=== PATIENT | male | born 1980 | race Caucasian/White ===

== ENCOUNTER 2018-06-29 11:00 | Day surgery (SDC) | payer BC ==
[2018-06-27 09:49] VITALS: BMI 36.7
[~2018-06-29 11:00] MED LIST: DEXAMETHASONE SOD PHOSPHATE 10 MG/ML 1 ML VIAL IV ONE; LACTATED RINGERS 1,000 ML IV SCH; MIDAZOLAM 2 MG/2 ML VIAL IV PRN; SCOPOLAMINE 1.5MG/72HR PATCH TRANSDERM ONE; SODIUM CHLORIDE 0.9% IRRIGATIO 1,000 ML IRRIGATION ONE; ceFAZolin 3 GM in SODIUM CHLORIDE 0.9% 100 ML IVPB ONE; fentaNYL (PF) 50 MCG/ML 2 ML AMP IVP PRN
[2018-06-29] MEDS ORDERED: LIDOCAINE 1% 20 ML VIAL (10MG/ML) FOR IV START INTRADERMA ONE (11:32)
[2018-06-29] MEDS: ONDANSETRON 4 MG/2 ML VIAL IVP ONE ×2 (11:40→14:48)
[2018-06-29] MEDS ORDERED: SUCCINYLCHOLINE CHLORIDE VIAL 200 MG/10 ML VIAL IV ONE (12:47)
[2018-06-29] MEDS ORDERED: NEOSTIGMINE 1 MG/ML 10 ML VIAL ONE (12:47)
[2018-06-29] MEDS ORDERED: fentaNYL (PF) 50 MCG/ML 2 ML AMP ONE (12:47)
[2018-06-29] MEDS ORDERED: ROCURONIUM BROMIDE 10 MG/ML 10 ML VIAL IV ONE (12:47)
[2018-06-29] MEDS ORDERED: MIDAZOLAM 2 MG/2 ML VIAL ONE (12:47)
[2018-06-29] MEDS ORDERED: PHENYLEPHRINE-0.9% NACL SYG 1 MG/10 ML SYRINGE ONE (12:47)
[2018-06-29] MEDS ORDERED: GLYCOPYRROLATE 0.2 MG/ML 2 ML VIAL ONE (12:47)
[2018-06-29] MEDS ORDERED: PROPOFOL 10 MG/ML 20 ML VIAL IV ONE (12:47)
[2018-06-29] MEDS ORDERED: LIDOCAINE 1% INJ 10MG/ML (20 ML MDV) ONE (12:47)
[2018-06-29] MEDS ORDERED: methylPREDNISolone ACETATE 80 MG/ML 1 ML VIAL IM ONE ×3 (12:48→14:03)
[2018-06-29] MEDS ORDERED: GELATIN SPONGE,ABSORB (LARGE) 1 EACH SPONGE TOPICAL ONE ×2 (12:48→13:27)
[2018-06-29] MEDS ORDERED: LIDOCAINE 0.5%-EPI 1:200,000 50 ML VIAL SQ ONE ×2 (12:48→13:27)
[2018-06-29] MEDS ORDERED: THROMBIN (BOVINE) 5,000 UNIT VIAL TOPICAL ONE ×2 (12:49→13:27)
[2018-06-29] MEDS ORDERED: LACTATED RINGERS 1,000 ML IV ONE (13:32)
[2018-06-29] MEDS ORDERED: HYDROcodone/APAP 5-325MG 1 EACH TAB PO PRN ×2 (14:25)
[2018-06-29] MEDS ORDERED: IBUPROFEN 600 MG TAB PO PRN (14:25)
[2018-06-29] MEDS ORDERED: HYDROmorphone 1 MG/ML 1 ML SYRINGE IVP PRN (14:25)
[2018-06-29] MEDS ORDERED: HYDROmorphone 0.5 MG/0.5 ML SYRINGE IVP PRN (14:25)
[2018-06-29] MEDS ORDERED: BENZOCAINE/MENTHOL LOZENG 1 EACH LOZENGE MUCOUS MEM PRN (14:25)
[2018-06-29] MEDS ORDERED: MAGNESIUM HYDROXIDE 2,400 MG/10 ML CUP PO PRN (14:25)
[2018-06-29] MEDS ORDERED: ONDANSETRON 4 MG/2 ML VIAL IVP PRN (14:25)
[2018-06-29] MEDS ORDERED: ACETAMINOPHEN TAB 325 MG TAB PO PRN (14:27)
--- NOTE | 2018-06-29 14:27 | FL ---
EXAMINATION TYPE: FL guidance operating room DATE OF EXAM: 06/29/2018 HISTORY: Flouroscopy time 4 seconds of fluoroscopy provided. IMPRESSION: 1. Fluoroscopy time.
[2018-06-29] MEDS ORDERED: SODIUM CHLORIDE 0.9% 1,000 ML IV SCH (14:30)
--- NOTE | 2018-06-29 14:32 | P.OP ---
Date of Procedure: 06/29/18 Preoperative Diagnosis: Large herniated disc L45 with extruded fragment, left lower extremity radiculopathy, left lower shoulder weakness, degenerative disc disease, low back pain Postoperative Diagnosis: Same Anesthesia: GETA Pathology: none sent Condition: stable Disposition: PACU Description of Procedure: BRIEF OPERATIVE NOTE Preoperative Diagnosis:Large herniated disc L45 with extruded fragment, left lower extremity radiculopathy, left lower shoulder weakness, degenerative disc disease, low back pain Postoperative Diagnosis:Large herniated disc L45 with extruded fragment, left lower extremity radiculopathy, left lower shoulder weakness, degenerative disc disease, low back pain, plus obesity Procedure: Laminectomy and decompression L4 5 Discectomy for decompression L4 5 Some increased difficulty due to patient's body habitus Surgeon: Dr. Todd Front End Application Developer: Rodney Arita is present throughout the entire the case persistence during positioning, dissection, exposure, visualization, and all crucial elements of the case as well as closure. Anesthesia: General anesthesia per Dr. Ley Estimated blood loss: Approximately 50 mL Complications: None apparent Components implanted: None Disposition: To recovery room in good stable condition. OPERATIVE INDICATIONS The patient has been having issues in their lower back and lower extremities over the past several years but has had worsening over the past couple of months. He is having significant pain in his back with left lower extremity radiculopathy over an L5 distribution. Patient had imaging which showed a massive disc herniation L4 5 on the left side with extruded fragment and degenerative disc disease adequately well with his low back and lower extremity radicular symptoms. The patient has been through conservative treatment. He is not having any prolonged benefit despite aggressive conservative treatment We discussed various treatment options including surgery, and the patient wishes to proceed with surgery We discussed the risk, patient's alternatives and benefits of surgery including but not limited to, risk of bleeding risk of infection, risk of need for further surgery, risk of decreased, loss of motion, loss of function, nerve damage, paralysis, heart attack, blindness and . OPERATIVE SUMMARY After discussing all the risks, patient alternatives and benefits at length, the patient elected to proceed with surgical intervention, signed informed consent, and presented for their procedure. The patient was seen and examined in the preoperative holding area and the surgical site was marked. The patient was given antibiotics and brought to the operating room. The patient was sedated and intubated by anesthesia in standard fashion. The patient was positioned on to the operating room table in a prone position on the appropriate frame which was well-padded and well molded. We were careful to pad any bony prominences and pressure points. We were careful to maintain the patient's cervical spine and good neutral alignment and position throughout. The patient was prepped and draped in a normal standard fashion. An appropriate timeout and keystone protocol performed. We were able to proceed with the surgery. Fluoroscopy was utilized to establish the appropriate level. The local wound area was infiltrated with local anesthetic. An incision was made at the midline longitudinally over the appropriate levels L4 5. Dissection was taken down subcutaneously to the level of the fascia which was split midline. The patient has significantly large body habitus and is morbidly obese and there was some increased time with dissection and decompression and discectomy throughout the case. Dissection was taken over the lamina. Intraoperative fluoroscopy was taken which showed a marker at the appropriate level. With the appropriate level positively confirmed, at L4 5 we were able to proceed with laminectomy. The wound was copiously irrigated and suctioned dry as had been done periodically throughout the case. I performed a laminectomy with a combination of curettes and a high-speed bur and Kerrison r ongeurs. A small medial facetectomy was performed again further access. A partial foraminotomy was also performed. Portions of the ligamentum flavum were taken down to expose the dura and traversing nerve root. There is significant scar tissue formation around the traversing nerve root and at the extruded disc fragment. It took extra care to mobilize the dressing nerve root and the disc itself. I was able to mobilize the traversing nerve root and gain access to the disc space. Note was made of obvious compression from the disc. Protecting the soft tissue structures, a small annulotomy was established. I was able to perform discectomy and remove any extruded disc fragments and any loose fragments from within the disc itself. There is some disc desiccation noted. I tried to preserve the disc annulus that appeared stable. There was significant disc loss at the intervertebral space. There were no further extruded fragments noted. There is no evidence of dural tear or leak. Good hemostasis maintained. The wound was copiously irrigated and suctioned dry. Good decompression and discectomy was noted. We were able to proceed with closure. The fascia was closed for a watertight closure. The subcuticular tissue was closed with absorbable suture. The wound was cleaned and dried and dressed with the appropriate dressing. The drapes were broken down. The patient was gently rolled back onto their hospital bed being careful to maintain their cervical spine and good neutral alignment and position. They were woken up by anesthesia, extubated, and brought to the recovery room in good stable condition. The patient will be admitted to the hospital for observation and for appropriate postoperative care, medical management and monitoring. We will continue to follow them closely about the postoperative course.
[2018-06-29 14:47] VITALS: TEMP 96.8
[2018-06-29] MEDS: HYDROmorphone 0.5 MG/0.5 ML SYRINGE IVP PRN ×2 (15:08→15:16)
[2018-06-29] MEDS: fentaNYL (PF) 50 MCG/ML 2 ML AMP IVP ONE ×2 (15:24→15:34)
[2018-06-29] MEDS ORDERED: SODIUM CHLORIDE 0.9% 1,000 ML IV ONE (15:40)
[2018-06-29] MEDS ORDERED: ceFAZolin 3 GM in SODIUM CHLORIDE 0.9% 100 ML IVPB SCH (16:00)
[2018-06-29 16:09] LABS: Glucose,Whole Blood 101 mg/dL (75-99)
[2018-06-29] MEDS ORDERED: HYDROcodone/APAP 5-325MG 1 EACH TAB PO ONE (16:13)
[2018-06-29 16:54] VITALS: RESP 20
[2018-06-29 18:11] VITALS: BP 148/84; PULSE 66
[2018-06-29] MEDS ORDERED: IBUPROFEN 800 MG TAB PO SCH (21:00)
[2018-06-30] MEDS ORDERED: SENNOSIDES-DOCUSATE SODIUM 1 EACH TAB PO SCH (09:00)
== END 2018-06-29 17:23 | disposition home or self-care (01) ==
LOC: OR 11:00
PROVIDERS: ATTEND Orthopaedic Surgery Orthopaedic Surgery of the Spine
DX: M51.26 Other intervertebral disc displacement, lumbar region (principal); M48.062 Spinal stenosis, lumbar region with neurogenic claudication; M51.16 Intervertebral disc disorders with radiculopathy, lumbar region; E78.2 Mixed hyperlipidemia; R53.1 Weakness; Z68.36 Body mass index [BMI] 36.0-36.9, adult; F17.210 Nicotine dependence, cigarettes, uncomplicated; E66.01 Morbid (severe) obesity due to excess calories; I45.10 Unspecified right bundle-branch block; R03.0 Elevated blood-pressure reading, without diagnosis of hypertension; Z79.1 Long term (current) use of non-steroidal anti-inflammatories (NSAID); Z79.52 Long term (current) use of systemic steroids; Z79.899 Other long term (current) drug therapy
CPT/HCPCS: 63030; J2250; J0330; J1040; J2710; J0690; J2405; J2001; J3010; J2370; J2704; J1170

== ENCOUNTER → 2018-12-09 | Outpatient (CLI) | payer BC ==
[2018-12-09 11:34] LABS: Basophils # (A) 0.2 k/uL (0-0.2); Basophils % (A) 2 %; Eosinophils # (A) 0.3 k/uL (0-0.7); Eosinophils % (A) 4 %; HCT 55.4 % (39.0-53.0); HGB 18.6 gm/dL (13.0-17.5); Lymphocytes # (A) 2.6 k/uL (1.0-4.8); Lymphocytes % (A) 30 %; MCH 30.9 pg (25.0-35.0); MCHC 33.6 g/dL (31.0-37.0); Mean Platelet Volume 6.7; Monocytes # (A) 0.5 k/uL (0-1.0); Monocytes % (A) 5 %; Neutrophils % (A) 58 %; Platelet Count 361 k/uL (150-450); RBC 6.02 m/uL (4.30-5.90); RDW 12.9 % (11.5-15.5); WBC 8.7 k/uL (3.8-10.6)
[2018-12-09 11:49] LABS: INR 0.9 (<1.2); Partial Thromboplastin Time 25.3 sec (22.0-30.0); Prothrombin Time 9.9 sec (9.0-12.0)
[2018-12-09 11:52] LABS: Appearance,Urine Clear (Clear); Bilirubin,Urine Negative (Negative); Blood,Urine Negative (Negative); Color,Urine Yellow; Glucose,Urine (UA) Negative (Negative); Ketones,Urine Negative (Negative); Leukocyte Esterase,Urine Negative (Negative); Nitrite,Urine Negative (Negative); Protein,Urine Negative (Negative); Specific Gravity,Urine 1.015 (1.001-1.035); Urobilinogen,Urine <2.0 mg/dL (<2.0)
[2018-12-09 11:54] LABS: African American GFR (CKD) >90 (>60 ml/min/1.73 sqM); Anion Gap 10 mmol/L; Blood Urea Nitrogen 8 mg/dL (9-20); Calcium 9.4 mg/dL (8.4-10.2); Carbon Dioxide 26 mmol/L (22-30); Chloride 105 mmol/L (98-107); Glucose 123 mg/dL (74-99); Potassium 4.9 mmol/L (3.5-5.1); Sodium 141 mmol/L (137-145)
--- NOTE | 2018-12-09 12:49 | XR ---
EXAMINATION TYPE: XR chest 2V DATE OF EXAM: 12/09/2018 COMPARISON: NONE HISTORY: Preop lumbar fusion TECHNIQUE: Frontal and lateral views of the chest are obtained. FINDINGS: There is no focal air space opacity, pleural effusion, or pneumothorax seen. The cardiac silhouette size is within normal limits. The osseous structures are intact. IMPRESSION: No acute cardiopulmonary process.
== END | disposition home or self-care (01) ==
LOC: LABPAT 10:28
PROVIDERS: ATTEND Orthopaedic Surgery Orthopaedic Surgery of the Spine
DX: Z01.818 Encounter for other preprocedural examination (principal); Z01.810 Encounter for preprocedural cardiovascular examination; Z01.812 Encounter for preprocedural laboratory examination; M51.9 Unspecified thoracic, thoracolumbar and lumbosacral intervertebral disc disorder
CPT/HCPCS: 36415; 71046; 80048; 81003; 85025; 85610; 85730; 87070; 93005

== ENCOUNTER 2018-12-14 12:47 | Day surgery (SDC) | payer BC ==
[~2018-12-14 12:47] MED LIST changes: +BACITRACIN 50,000 UNIT, POLYMYXIN B 500,000 UNIT in SODIUM CHLORIDE 0.9% IRRIGATIO 1,00... IRRIGATION ONE; -DEXAMETHASONE SOD PHOSPHATE 10 MG/ML 1 ML VIAL IV ONE; -LACTATED RINGERS 1,000 ML IV SCH; -MIDAZOLAM 2 MG/2 ML VIAL IV PRN; -SCOPOLAMINE 1.5MG/72HR PATCH TRANSDERM ONE; -SODIUM CHLORIDE 0.9% IRRIGATIO 1,000 ML IRRIGATION ONE; -fentaNYL (PF) 50 MCG/ML 2 ML AMP IVP PRN
[2018-12-14] MEDS ORDERED: LACTATED RINGERS 1,000 ML IV ONE ×3 (13:04→17:46)
[2018-12-14] MEDS ORDERED: LIDOCAINE 1% 20 ML VIAL (10MG/ML) FOR IV START INTRADERMA ONE (13:04)
[2018-12-14] MEDS ORDERED: HYDROmorphone (PF) 1 MG/ML ONE (15:19)
[2018-12-14] MEDS ORDERED: PROPOFOL 10 MG/ML 20 ML VIAL IV ONE (15:19)
[2018-12-14] MEDS ORDERED: PHENYLEPHRINE-0.9% NACL SYG 1 MG/10 ML SYRINGE ONE (15:19)
[2018-12-14] MEDS ORDERED: SUCCINYLCHOLINE CHLORIDE VIAL 200 MG/10 ML VIAL IV ONE (15:19)
[2018-12-14] MEDS ORDERED: LIDOCAINE 1% INJ 10MG/ML (20 ML MDV) ONE (15:19)
[2018-12-14] MEDS ORDERED: KETAMINE 10 MG/ML 20 ML VIAL ONE (15:19)
[2018-12-14] MEDS ORDERED: fentaNYL (PF) 50 MCG/ML 2 ML AMP ONE (15:19)
[2018-12-14] MEDS ORDERED: MIDAZOLAM 2 MG/2 ML VIAL ONE (15:19)
[2018-12-14] MEDS ORDERED: GELATIN SPONGE,ABSORB (LARGE) 1 EACH SPONGE TOPICAL ONE (16:41)
[2018-12-14] MEDS ORDERED: THROMBIN (BOVINE) 5,000 UNIT VIAL TOPICAL ONE (16:41)
[2018-12-14] MEDS ORDERED: LIDOCAINE 0.5%-EPI 1:200,000 50 ML VIAL SQ ONE (16:42)
[2018-12-14] MEDS ORDERED: HYDROmorphone 0.5 MG/0.5 ML SYRINGE IVP PRN ×2 (17:48→19:22)
[2018-12-14] MEDS ORDERED: BENZOCAINE/MENTHOL LOZENG 1 EACH LOZENGE MUCOUS MEM PRN (17:48)
[2018-12-14] MEDS ORDERED: MAGNESIUM HYDROXIDE 2,400 MG/10 ML CUP PO PRN (17:48)
[2018-12-14] MEDS ORDERED: ONDANSETRON 4 MG/2 ML VIAL IVP PRN (17:50)
[2018-12-14] MEDS ORDERED: HYDROcodone/APAP 5-325MG 1 EACH TAB PO PRN (17:50)
--- NOTE | 2018-12-14 17:59 | P.OP ---
Date of Procedure: 12/14/18 Preoperative Diagnosis: Recurrent disc herniation L4 5, recurrent stenosis L4 5, progressive degeneration L4 5, degenerative disc disease L4 5 low back pain with lower extremity radiculopathy Postoperative Diagnosis: Same Anesthesia: GETA Pathology: none sent Condition: stable Disposition: PACU Description of Procedure: DESCRIPTION OF PROCEDURE(S): BRIEF OPERATIVE NOTE Preoperative Diagnosis: Recurrent disc herniation L4 5, recurrent stenosis L4 5, progressive degeneration L4 5, degenerative disc disease L4 5 low back pain with lower extremity radiculopathy Postoperative Diagnosis:Recurrent disc herniation L4 5, recurrent stenosis L4 5, progressive degeneration L4 5, degenerative disc disease L4 5 low back pain with lower extremity radiculopathy Procedure: Revision Laminectomy and decompression L4 5 Minimally invasive Posterior lateral decompression and L4 5 facet fusion Minimally invasive Transforaminal lumbar interbody fusion for a 360 fusion L4 5 Discectomy for decompression L4 5 Placement of interbody graft L4 5 Local autogenous bone grafting Harvesting of bone marrow aspirate in the pedicle of L4 on the right Use of Cell Saver Use of bone graft extenders Surgeon: Dr. Todd Nurses Aide: Rodney GREGORY who is present throughout the entire the case persistence during positioning, dissection, exposure, visualization, and all crucial elements of the case as well as closure. Anesthesia: General anesthesia Estimated blood loss: Approximately 200 mL Complications: None apparent Components implanted: K2M minimally invasive [place] pedicle screw system with 6.5 x 50 mm screws 2 rods measuring 40 mm and [place] interbody 7 mm cage and and 10 mL of bio4 allograft bone graft and 30 mL of DBX bone fiber matrix to supplement the local autogenous bone graft and bone marrow aspirate Disposition: To recovery room in good stable condition. OPERATIVE INDICATIONS The patient has had significant issues in their lower back and lower extremities. the patient had a disc herniation earlier this year had severe left lower extremity radicular symptoms. Patient underwent laminectomy decompression with discectomy back in May of this year and did very well with his surgery. He had very good resolution of his lower extremity radiculopathy and symptoms and was making excellent progress until the past several months respiratory having increasing back pain and recurrent left leg symptoms. The patient is having worsening symptoms was found to have progressive degeneration and disc height loss at L4 5 as well as evidence of recurrence of some of the disc herniation and foraminal stenosis which really well with his low back and lower extremity symptoms. It appeared as though the level of L4 5 was not well supported and had instability causing the advance flaps of the disc space. The patient again began aggressive conservative treatment was not having any prolonged benefit despite aggressive conservative care. The patient has been through conservative treatment. We discussed various treatment options including surgery, and the patient wishes to proceed with surgery We discussed the risk, patient's alternatives and benefits of surgery including but not limit ed to, risk of bleeding risk of infection, risk of need for further surgery, risk of decreased, loss of motion, muscle function, malunion nonunion, hardware failure, nerve damage, paralysis, heart attack, blindness and . OPERATIVE SUMMARY After discussing all the risks, patient alternatives and benefits at length, the patient elected to proceed with surgical intervention, signed informed consent, and presented for their procedure. The patient was seen and examined in the preoperative holding area and the surgical site was marked. The patient was given antibiotics and brought to the operating room. The patient was sedated and intubated by anesthesia in standard fashion. The patient was positioned on to the operating room table in a prone position on the appropriate frame which was well-padded and well molded. We were careful to pad any bony prominences and pressure points. We were careful to maintain the patient's cervical spine and good neutral alignment and position throughout. The patient was prepped and draped in a normal standard fashion. An appropriate timeout and keystone protocol performed. We were able to proceed with the surgery. The local wound area was infiltrated with local anesthetic. I was able utilize C-arm guidance to establish appropriate position over the pedicles bilaterally at the appropriate levels at L4 5 . With the appropriate levels confirmed was able to make small stab incisions over the appropriate pedicle sites bilaterally. Utilizing C-arm in his house able to establish a Jamshidi needle over the lateral aspect of the pedicle and advanced the trocar into the pedicle being careful not to breech superiorly inferiorly medially or laterally. Position was confirmed regularly with AP and lateral images on C- arm. I was able to establish the trocar into the pedicle appropriately into the posterior aspect of the vertebral body bilaterally at the appropriate levels of L4 and L5 . This was done at each of the pedicle positions and each of the vertebrae. at L4 on the right and was able to withdraw approximately 25 mL of bone marrow aspirate to be utilized for supplemental bone graft later in the case. I was able place the guidewire into the trocar and into the vertebral body appropriately under C-arm guidance. Dissection was taken down over the wire to the appropriate starting position for the screw placed. The appropriate length screw was chosen, threaded over the guidewire and screwed appropriately into the pedicle and vertebral body under C-arm guidance in excellent alignment and position with good bony purchase. This is done at each of the screw sites at the appropriate levels at L4 and L5 bilaterally . With the screws intact I extended the incision to connect the screw hole sites on the most symptomatic side on the left . I dissected down to establish access over the pars and lamina to the base of the spinous process. I was able to expose the facet joint. The capsule the facet was taken down and showed some facet arthrosis at the joint. I was able to use a combination of curettes and Kerr[place] rongeurs and a high-speed drill to take down the facet joint and do a facetectomy. note was made of his prior laminectomy site and I had to do some dissection of scar tissue or to expose the lamina appropriately for further revision laminectomy. Partial laminectomy was also performed. I was able get excellent foraminal decompression and central decompression with undermining across midline to perform a laminectomy centrally and contralaterally. As able get good central decompression. The ligamentum flavum was taken down to further decompress centrally and at bilateral neural foramen. I was able to expose the disc space and visualize the traversing nerve root. Note was made of some disc protrusion at the level causing further compression of the nerve root. I was able to establish a annulotomy at the appropriate level protecting soft tissue and neural structures. Note was made of some severe disc desiccation at the disc with significant disc loss . I performed a complete discectomy with accommodation of curettes and rasps and scrapers. I was able get good endplate preparation at the disc space. I sized for the appropriate size interbody spacer protecting the soft tissue and neural structures. The wound was copiously irrigated and suctioned dry. There is no evidence of any dural tear or leak. I was able to pack the disc space with local autogenous bone graft as well as a small amount of bone graft which was also placed into the interbody cage itself. Protecting the soft tissue structures and neural structures I was able place the interbody cage in good alignment and good position with good fit and fill at the interbody space at L4 5 . His issues was confirmed with C-arm guidance. Good hemostasis maintained. There is no evidence of any dural tear or leak. The wound was irrigated and suctioned dry. With the hardware intact, intraoperative C-arm imaging was again taken which showed good alignment and position of the hardware at the appropriate levels. We were then able to measure, contour and place the rods and appropriate hardware bilaterally at L4 and L5 . I was able to place capcrews, tighten them down, and torque them with the torque screwdriver appropriately. With this intact I was able to place the local autogenous bone graft with additional bone graft enhancer as necessary into the posterior lateral gutters over the decorticated transverse processes. The remainder of the bone graft was placed over the facet joint on the contralateral side after taking down the facet joint capsule. With the bone graft intact, a stable construct, and good decompression at the appropriate levels, we were able to proceed with closure. Good hemostasis was maintained. There is no evidence of dural tear or leak. The fascia was closed for a watertight closure. he subcuticular tissue was closed with absorbable suture. The wound was cleaned and dried and dressed with the appropriate dressing. The drapes were broken down. The patient was gently rolled back onto their hospital bed being careful to maintain their cervical spine and good neutral alignment and position. They were woken up by anesthesia, extubated, and brought to the recovery room in good stable condition. The patient will be admitted to the hospital for appropriate postoperative care, medical management and monitoring. We will continue to follow them closely about the postoperative course.
[2018-12-14] MEDS: HYDROmorphone 1 MG/ML 1 ML SYRINGE IVP ONE ×3 (18:10→18:30)
[2018-12-14] MEDS: SODIUM CHLORIDE 0.9% 1,000 ML IV SCH (18:55)
[2018-12-14 19:03] VITALS: BMI 34.0
[2018-12-14] MEDS ORDERED: SCOPOLAMINE 1.5MG/72HR PATCH TRANSDERM ONE (19:22)
[2018-12-14] MEDS ORDERED: ONDANSETRON 4 MG/2 ML VIAL IVP ONE (19:22)
[2018-12-14] MEDS ORDERED: LIDOCAINE 1% 20 ML VIAL (10MG/ML) FOR IV START INTRADERMA PRN (19:22)
[2018-12-14] MEDS ORDERED: MIDAZOLAM 2 MG/2 ML VIAL IV PRN (19:22)
[2018-12-14] MEDS ORDERED: DEXAMETHASONE SOD PHOSPHATE 10 MG/ML 1 ML VIAL IV ONE (19:22)
[2018-12-14] MEDS: LACTATED RINGERS 1,000 ML IV SCH (19:40)
[2018-12-14] MEDS: HYDROmorphone 1 MG/ML 1 ML SYRINGE IVP PRN ×2 (19:44→23:49)
[2018-12-14] MEDS: ceFAZolin 3 GM in SODIUM CHLORIDE 0.9% 100 ML IVPB SCH (23:26)
--- NOTE | 2018-12-14 23:56 | P.CONS ---
History of Present Illness - Reason for Consult Consult date: 12/14/18 medical management post op Requesting physician: Manas Todd - Chief Complaint lower back pain with radiculopathy - History of Present Illness 38-year-old male with no significant past medical history except for low back pain secondary to injuries in the past Patient presented for scheduled laminectomy and decompression of lumbar spine secondary to herniated disc with radiculopathy. Patient tolerated procedure well observed immediate postoperative consultations patient seen in the postoperatively , denies any chest pain or trouble breathing tolerated by mouth intake denies chest pain denies fevers or chills denies any coughing reports that pain is well tolerated. Currently denies any numbness or tingling in his lower extremities Review of Systems Pertinent positives as noted in HPI. All other systems were reviewed and are negative Past Medical History Past Medical History: No Reported History Additional Past Medical History / Comment(s): back pain,numbness and tingling left toes History of Any Multi-Drug Resistant Organisms: None Reported Past Surgical History: No Surgical Hx Reported Additional Past Surgical History / Comment(s): discectomy Past Anesthesia/Blood Transfusion Reactions: No Reported Reaction Additional Past Anesthesia/Blood Transfusion Reaction / Comm: no hx blood transfusion Past Psychological History: No Psychological Hx Reported Smoking Status: Current every day smoker Past Alcohol Use History: Occasional Additional Past Alcohol Use History / Comment(s): STARTED SMOKING AT AGE 18 SMOKES 1PPD Past Drug Use History: Marijuana Additional Drug Use History / Comment(s): uses marijuana 1-2 times per month - Past Family History Father Family Medical History: Cancer Additional Family Medical History / Comment(s): PROSTATE CANCER Medications and Allergies Home Medications Medication Instructions Recorded Confirmed Type No Known Home Medications 12/07/18 12/07/18 History Allergies Allergy/AdvReac Type Severity Reaction Status Date / Time No Known Allergies Allergy Verified 12/14/18 12:56 Physical Exam Vitals: Vital Signs Temp Pulse Pulse Resp BP Pulse Ox 12/14/18 20:45 73 145/85 12/14/18 20:33 98 12/14/18 20:30 81 137/90 12/14/18 20:15 79 153/89 12/14/18 20:00 75 156/74 12/14/18 19:45 68 128/81 12/14/18 19:30 76 145/80 12/14/18 19:15 77 139/85 12/14/18 19:00 98.2 F 72 16 149/93 98 12/14/18 18:30 72 18 123/60 98 12/14/18 18:18 68 20 137/85 98 12/14/18 18:00 97.6 F 82 20 126/80 100 12/14/18 13:03 97.3 F L 71 16 129/60 96 Intake and Output 12/14/18 12/14/18 12/15/18 14:59 22:59 06:59 Intake Total 1100 2301 Output Total 780 Balance 1100 1521 Intake: IV 1100 1101 Oral 1200 Output: Urine 580 Estimated Blood Loss 200 Other: # Voids 1 Constitutional: No acute distress, conversant, pleasant Eyes: Anicteric sclerae, moist conjunctiva, no lid-lag Pupils equal round reactive to light ENMT: NC/AT Oropharynx clear, no erythema, exudates Neck: Supple, FROM, no masses, or JVD No carotid bruits No thyromegaly Lungs: Clear to auscultation Clear to percussion Normal respiratory effort, no accessory muscle use Cardiovascular: Heart regular in rate and rhythm, No murmurs, gallops, or rubs No peripheral edema Abdominal: Soft Nontender, no guarding, rebound or rigidity Abdomen moving with respiration Normoactive bowel sounds No hepatomegaly, No splenomegaly No palpable mass No abdominal wall hernia noted Skin: Normal temperature, tone, texture, turgor No induration No subcutaneous nodules No rash, lesions No ulcers Extremities: No digital cyanosis No clubbing Pedal pulses intact and symmetrical Radial pulses intact and symmetrical No calf tenderness Psychiatric: Alert and oriented to person, place and time Appropriate affect fair judgement Neuro Muscles Strength 5/5 in bilateral upper extremities, limited exam over lower extremities due to pain from lumbar spine surgery Sensation to light touch grossly present throughout Cranial nerves II-XII grossly intact No focal sensory deficits Lymphatics: no palpable cervical or supraclavicular , or inguinal lymph nodes Assessment and Plan Assessment: 38 year old male with no significant past medical history presented for scheduled spinal fusion tolerated procedure well metastases was consulted for medical management. Plan: Herniated lumbar disc with radiculopathy status post laminectomy and decompression postoperative day 0 Management per orthopedics DVT prophylaxis mechanical Follow-up CBC and BMP Encourage use of incentive spirometry Patient counseled to quit smoking, nicotine replacement therapy offered Thank you for allowing us to participate in the care of this patient. Do not hesitate to contact us with questions. Someone can be reached from the [facility] hospitalist group at all hours of the day at [phone].
[2018-12-15] MEDS: HYDROcodone/APAP 5-325MG 1 EACH TAB PO PRN ×2 (03:52→08:05)
[2018-12-15 07:44] LABS: Basophils # (A) 0.2 k/uL (0-0.2); Basophils % (A) 1 %; Eosinophils # (A) 0.2 k/uL (0-0.7); Eosinophils % (A) 2 %; HCT 48.3 % (39.0-53.0); HGB 17.1 gm/dL (13.0-17.5); Lymphocytes # (A) 2.1 k/uL (1.0-4.8); Lymphocytes % (A) 16 %; MCHC 35.4 g/dL (31.0-37.0); MCV 90.3 fL (80.0-100.0); Monocytes # (A) 0.6 k/uL (0-1.0); Monocytes % (A) 5 %; Neutrophils # (A) 9.7 k/uL (1.3-7.7); Neutrophils % (A) 75 %; Platelet Count 317 k/uL (150-450); RBC 5.35 m/uL (4.30-5.90); RDW 12.5 % (11.5-15.5); WBC 13.1 k/uL (3.8-10.6)
[2018-12-15 07:57] LABS: African American GFR (CKD) >90 (>60 ml/min/1.73 sqM); Anion Gap 10 mmol/L; Blood Urea Nitrogen 6 mg/dL (9-20); Calcium 8.5 mg/dL (8.4-10.2); Carbon Dioxide 25 mmol/L (22-30); Chloride 103 mmol/L (98-107); Glucose 97 mg/dL (74-99); Potassium 4.3 mmol/L (3.5-5.1); Sodium 138 mmol/L (137-145)
[2018-12-15] MEDS: NICOTINE 21MG/24HR PATCH TRANSDERM SCH (08:05)
[2018-12-15] MEDS: SENNOSIDES-DOCUSATE SODIUM 1 EACH TAB PO SCH (08:05)
--- NOTE | 2018-12-15 08:39 | P.PN ---
Progress Note - Text Progress Note Date: 12/15/18 Postoperative day #1 Patient is seen and examined today at bedside. The patient has some pain around the surgical site as expected. Pain is being controlled with medication. He is done with his IV and he has been up to use the bathroom. He is having significant pain with trying to mobilize but is managing adequately. Physical Exam Afebrile with stable vital signs Abdomen is soft nontender. Chest has good excursion deep and space expiration The incision site is clean dry and intact. No erythema there is no purulence. His back incision site is clear Extremities have not had neurologic change from prior to surgery. He has sustained dorsal flexion plantarflexion and EHL intact Calves and thighs were soft nontender without evidence of DVT. Assessment/Plan Postoperative day #1 status post revision laminectomy L4 5 with fusion at L4 5 for his recurrent stenosis and progressive degenerative disc loss with low back pain and radiculopathy Patient is progressing as expected from the surgery. He has been able to urinate on his own with the Garcia removed yesterday. He is not yet had a bowel movement. We like to make sure that the patient's bowels are functioning adequately he is at least passing gas well before his discharge. He is taking really medications and we need to increase his dosage this morning. Hopefully this will stabilize who able to be discharged home tomorrow. We will continue to increase the patient's mobilization with therapy. Overall his mobility has been doing well and is very determined and residual. If he is moving very well and the pain is easily controlled then we can consider possible discharge home today think he would be most comfortable with discharge home tomorrow morning. We will continue pain control with oral or IV medications. We'll continue to follow patient closely.
[2018-12-15] MEDS: ceFAZolin 3 GM in SODIUM CHLORIDE 0.9% 100 ML IVPB SCH (08:58)
[2018-12-15] MEDS: SODIUM CHLORIDE 0.9% 1,000 ML IV SCH ×2 (08:59→19:33)
--- NOTE | 2018-12-15 09:18 | FL ---
EXAMINATION TYPE: FL guidance operating room DATE OF EXAM: 12/14/2018 HISTORY: Flouroscopy time 1 minute and 21 seconds of fluoroscopy provided. IMPRESSION: 1. Fluoroscopy time.
--- NOTE | 2018-12-15 09:23 | XR ---
EXAM TYPE: LUMBAR SPINE X RAY SERIES COMPARISON: NONE HISTORY: Intraoperative image TECHNIQUE: 2 views are submitted. FINDINGS: 2 intraoperative images demonstrate postsurgical changes involving the lower lumbar spine. Limited re solution limits the exam. IMPRESSION: 1. Intraoperative surgical change
--- NOTE | 2018-12-15 12:07 | P.PN ---
Subjective Progress Note Date: 12/15/18 Principal diagnosis: Medical management post spinal fusion POD 1 Patient seen and examined. No acute events overnight. Patient reports back pain, 8 out of 10 in severity. States that Dilaudid helps but only lasts about 3-1/2 hours prior to pain returning. He denies any bladder or bowel incontinence. No saddle anesthesia. Patient denies any chest pain, shortness of breath or palpitations. Objective - Vital Signs Vital signs: Vital Signs Temp 98 F 12/15/18 07:00 Pulse 88 12/15/18 07:00 Resp 16 12/15/18 07:30 BP 149/83 12/15/18 07:00 Pulse Ox 98 12/15/18 07:00 Intake & Output 12/14/18 12/15/18 12/15/18 18:59 06:59 18:59 Intake Total 2201 1200 Output Total 780 Balance 1421 1200 Intake: IV 2201 Oral 1200 Output: Urine 580 Estimated Blood Loss 200 Other: Voiding Method Toilet # Voids 1 - Exam General: [non toxic], [no distress], [appears at stated age] Derm: [warm], [dry] Head: [atraumatic], [normocephalic], [symmetric] Eyes: [EOMI], [no lid lag], [anicteric sclera] Mouth: [no lip lesion], [mucus membranes moist] Cardiovascular: [S1S2 reg], [no murmur], [positive posterior tibial pulse bilateral], Lungs: [CTA bilateral], [no rhonchi, no rales] , [no accessory muscle use] Abdominal: [soft], [ nontender to palpation], [no guarding], [no appreciable organomegaly] Ext: [no gross muscle atrophy], [no edema], [no contractures] Neuro: [no focal neuro deficits] Psych: [Alert], [oriented], [appropriate affect] - Labs CBC & Chem 7: 12/15/18 06:52 12/15/18 06:52 Labs: Abnormal Lab Results - Last 24 Hours (Table) 12/15/18 12/15/18 Range/Units 06:52 06:52 WBC 13.1 H (3.8-10.6) k/uL Neutrophils # 9.7 H (1.3-7.7) k/uL BUN 6 L (9-20) mg/dL Assessment and Plan Assessment: Assessment and plan Herniated lumbar disc with radiculopathy status post laminectomy and decompression POD 1 Leukocytosis Plans: Management as per orthopedic surgery. Leukocytosis of 13.1. Patient is on steroids. Also stress from surgery. No signs of infection. Afebrile. Plans: Continue to monitor. Thank you for this consultation. Please call with any additional questions or concerns.
[2018-12-15] MEDS: HYDROcodone/APAP 10-325MG 1 EACH TAB PO PRN ×4 (12:09→23:58)
[2018-12-15] MEDS: LACTATED RINGERS 1,000 ML IV SCH (19:33)
[2018-12-16] MEDS: HYDROcodone/APAP 10-325MG 1 EACH TAB PO PRN ×3 (06:27→15:12)
[2018-12-16 07:52] VITALS: RESP 18
--- NOTE | 2018-12-16 08:46 | P.DS ---
Providers Date of admission: 12/14/2018 Expected date of discharge: 12/16/18 Attending physician: Manas Todd Consults: 12/14/18 17:50 Consult Physician Routine Consulting Provider: [facility] Consult Reason/Comments: Medical management Do you want consulting provider notified?: Yes Primary care physician: Stated None - Discharge Diagnosis(es) (1) Status post lumbar spinal fusion Current Visit: Yes Status: Acute (2) Low back pain Current Visit: Yes Status: Acute (3) Lumbar back pain with radiculopathy affecting left lower extremity Current Visit: Yes Status: Acute (4) Lumbar stenosis Current Visit: Yes Status: Acute (5) Lumbar herniated disc Current Visit: Yes Status: Acute Hospital Course: This is a pleasant 38-year-old male who presented with L4-5 recurrent herniated nucleus pulposus and recurrent stenosis with progressive degenerative disc disease, low back pain, and left lower extremity radiculopathy who failed outpatient conservative therapy. He was admitted for an L4-5 minimally invasive posterior lateral decompression fusion with transforaminal lumbar interbody fusion and revision laminectomy. The patient tolerated the procedure well and did well postoperatively. He is not currently experiencing any significant lower extremity radiculopathy symptoms. He continues to have some pain at the surgical sites. His pain has been able to be controlled with oral medications. He has discontinued narcotic medications. He is eating and voiding without difficulty. He has not had a bowel movement postoperatively but continues to pass gas. His belly is soft. He does feel he would be ready for discharge home later today. Condition on day of discharge stable. Patient will be discharged home. Patient was cleared preoperatively for surgery by Dr. [place]. Patient currently denies any nausea, vomiting, fever, or chills. Patient may shower Tegaderm and silver dressing intact. Patient may remove Tegaderm and silver dressing in 3 days and shower without a dressing at that time. Patient should refrain from driving until at least after their first follow-up appointment in the office. Patient should avoid excessive bending, lifting, and twisting; no lifting greater than 10 pounds. Patient should avoid anti-inflammatory medications over the next 6 weeks postoperatively. MAPS has been reviewed. An "Opiod Start Talking" Form has been signed by the patient and and Dr. Siddharth Todd and placed in the patient's chart. A prescription has been written for [place] 10 mg/325 mg 1 tablet every 6 hours as needed for pain, dispensed #28. Physical Exam on day of discharge: Patient is awake, alert, and oriented 3 Vital signs stable Good chest excursion with deep inspiration and expiration Abdomen soft nontender No signs or symptoms of DVT; no calf pain Extensor hallucis longus, plantarflexion, and dorsiflexion positive sustained bilateral lower extremities Calves are soft nontender; no evidence of DVT Incision is clean, dry, and intact; no erythema, purulence, or signs of infection Tegaderm and silver dressing and non-stick Telfa intact Procedures: L4-5 minimally invasive posterior lateral decompression fusion with transforaminal lumbar interbody fusion and revision laminectomy. Patient Condition at Discharge: Stable Plan - Discharge Summary Discharge Rx Participant: Yes New Discharge Prescriptions: New HYDROcodone/APAP 10-325MG [[place] 10-325] 1 tab PO Q6HR PRN 7 Days #28 tab PRN Reason: Pain Discharge Medication List HYDROcodone/APAP 10-325MG [[place] 10-325] 1 tab PO Q6HR PRN 7 Days #28 tab 12/15/18 [Rx] Follow up Appointment(s)/Referral(s): Manas Todd DO [Doctor of Osteopathic Medicine] - 2 Weeks Activity/Diet/Wound Care/Special Instructions: Keep site clean. May shower with waterproof Tegaderm intact. Do not soak in a tub. After 72 hours postoperatively, patient May remove dressing and then may shower with area uncovered. Leave Steri-Strips/glue intact and allow them to fray off on their own. May ambulate as tolerated. Avoid heavy or rigorous activity. No repetitive bending twisting or lifting. No overhead work. Discharge Disposition: HOME SELF-CARE
[2018-12-16] MEDS: NICOTINE 21MG/24HR PATCH TRANSDERM SCH (09:54)
[2018-12-16] MEDS: SENNOSIDES-DOCUSATE SODIUM 1 EACH TAB PO SCH (09:54)
[2018-12-16] MEDS: SODIUM CHLORIDE 0.9% 1,000 ML IV SCH (14:26)
[2018-12-16 15:19] VITALS: BP 125/76; PULSE 91; TEMP 99.5
== END 2018-12-16 15:52 | disposition home or self-care (01) ==
LOC: OR 12:47 → 4SSUR 17:47 → OR 12-16 15:52
PROVIDERS: ATTEND Orthopaedic Surgery Orthopaedic Surgery of the Spine
DX: M51.16 Intervertebral disc disorders with radiculopathy, lumbar region (principal); M48.062 Spinal stenosis, lumbar region with neurogenic claudication; E78.5 Hyperlipidemia, unspecified; Z97.3 Presence of spectacles and contact lenses; M62.830 Muscle spasm of back; F17.210 Nicotine dependence, cigarettes, uncomplicated; Z80.42 Family history of malignant neoplasm of prostate; Z79.1 Long term (current) use of non-steroidal anti-inflammatories (NSAID); Z79.899 Other long term (current) drug therapy
CPT/HCPCS: 94760; 97116; 97161; 86900; 86901; 80048; 85025; 86850; 72100; 63047; C1713; S4990 ×2; J2250; J0330; J0690 ×2; J2405; J2001; J3010; J1170 ×2; J2370; J2704